=== PATIENT | male | born 1955 ===

== ENCOUNTER 2022-01-23 06:20 | Emergency (ER) | payer OTHER, SELFPAY ==
--- OUTSIDE RECORDS SUMMARY | 2022-01-23 06:24 | XMS REPORT | Continuity of Care Document ---
:1955 Author Organization [facility] t Address [address] [place] [address] Dr. Gayle [address] [place] [address] Care Team Providers Name Role Phone BELIA HANCOCK Attending Clinician Unavailable Belia Hancock MD Attending Clinician Only, Adc Test Attending Clinician Unavailable BELIA HANCOCK Admitting Clinician Unavailable Belia Hancock MD Admitting Clinician Problems This patient has no known problems. Allergies, Adverse Reactions, Alerts Allergy Allergy Status Severity Reaction(s) Onset Inactive Treating Comm ents Source Name Type Date Date Clinician NO KNOWN Drug Active Univers ALLERGIE Class [facility] Social History Social Habit Start Date Stop Date Quantity Comments Source Sex Assigned At [facility] Exposure to Not sure [facility] SARS-CoV-2 (event) [facility] Tobacco use and 2020-01-13 2020-01-13 Never used [facility] exposure 00:00:00 00:00:00 [facility] Smoking Status Start Date Stop Date Source Unknown if ever smoked [facility] Never smoker [facility] Medications Ordered Filled Start Stop Current Ordering Indication Dosage Frequency Signature Comments Components Source Medication Medication Date Date Medication? Clinician (SIG) Name Name lisinopriL 2019-02 Yes 10mg Take 10 mg U nivers 10 mg 2-09 by mouth ity of tablet 16:01: daily. [address] atorvastati 2019-02 Yes 80mg Take 80 mg Univers n 80 mg 2-09 by mouth ity of tablet 16:01: at [place] [address] bedtime. [facility] water for 2019-02 Yes PRN, Univers irrigation -09 Starting ity o f irrigation 13:05: Wed [place] solution 00 12/9/20 at Medic al 0705, Branch Until Discontinu ed, Routine, Intra-op simethicone 2019-02 Yes PRN, Univer s (GAS RELIEF - Starting ity of (SIMETHICON 13:05: Wed [place] E)) 40 00 01/15/20 at Medical mg/0.6 mL 0705, Branch drops Until Discontinu ed, Routine, Intra-op atorvastati 2019-02 Yes 80mg Take 80 mg Univers n 80 mg 2-07 by mouth ity of tablet 19:10: at [place] 40 bedtime. Medical Branch lisinopriL 2019-02 Yes 10mg Take 10 mg U nivers 10 mg 2-07 by mouth ity of tablet 19:10: daily. [address] Vital Signs Vital Name Observation Time Observation Value Comments Source Systolic blood 2020-01-15 15:03:00 124 mm[Hg] [facility] sity pressure [facility] Diastolic blood 2020-01-15 15:03:00 78 mm[Hg] [facility] of pressure [facility] Heart rate 2020-01-15 15:03:00 69 /min [facility] Respiratory rate 2020-01-15 15:03:00 16 /min [facility] Oxygen saturation in 2020-01-15 15:03:00 96 /min [facility] Arterial blood by [facility] Pulse oximetry [place] Body temperature 2020-01-15 14:23:00 36.33 Jessy [facility] Body height 2020-01-15 12:30:00 172.7 cm [facility] Body weight 2020-01-15 12:30:00 68.04 kg [facility] BMI 2020-01-15 12:30:00 22.81 kg/m2 [facility] Procedures Procedure Date / Time Performed Performing Clinician Claudette e EGD (ENDO) 2020-01-15 13:55:[address] [facility] CONSENT/REFUSAL FOR 2020-01-14 18:18:37 Doctor Unassigned, No [facility] DIAGNOSIS AND Name [facility] TREATMENT ASSIGNMENT OF BENEFITS 2020-01-14 18:18:25 Doctor Unassigned, No [facility] US ABDOMEN LIMITED 2019-11-18 21:29:47 Belia Hancock [facility] Encounters Start End Encounter Admission Attending Care Care Encounter Source Date/Time Date/Time Type Type Clinicians Facility Department ID 2020-12-05 Outpatient [facility] [id number] Univers 09:22:32 BELIA Daniel [facility] 2020-01-15 2020-01-15 [facility] [id number] Univers 06:32:00 09:22:00 Encounter e Belia Dumont [id number] ity of [place] [id number] [facility] [id number] [facility] [address] [place] 2020-01-14 2020-01-14 Laboratory Only, Adc Test [facility] [id number] Univers 12:16:35 12:31:35 Only Belia Hancock 350.1.1 3.10 [facility] [place] [id number] [facility] [id number] [facility] [address] [place] 2020-01-14 2020-01-14 Outpatient R [facility] [id number] Univers 12:30:00 12:30:00 BELIA Daniel [facility] 2019-11-18 2019-11-18 [facility] [id number] Univers 15:56:42 23:59:00 Encounter john Belia Dumont [id number] [facility] of [place] [id number] [facility] [id number] [facility] [address] [place] 2019-11-18 2019-11-18 Outpatient R [facility] [id number] Univers 00:00:00 00:00:00 BELIA Daniel [facility] Results Test Description Test Test Results Result Source Time Comments Comments US ABDOMEN right Univer sity of LIMITED 12 upper quadrant [facility] 21:56:22 ultrasound. No Branch cholelithiasis orcholecystitis.US ABDOMEN LIMITED 11/18/2019 4:09 PM HISTORY: Chest pain, unspecified type chest pain when burping COMPARISON: None. FINDINGS: LIVER: Normal in size measuring 13.4 cm in length. And echo-texture. Nofocal hepatic lesion. ?Normal hepatopetal ?flow within the main portalvein. Main portal vein diameter: 0.9 cm. GALLBLADDER: No cholelithiasis, pericholecystic fluid, or gallbladderdistention. No sonographic Menendez's sign. The common bile duct measures 0.3cm. PANCREAS: The visualized portion of the pancreas is unremarkable. RIGHT KIDNEY: The visualized portion of the right kidney is unremarkable. Aorta: The proximal aorta measures 1.8 cm. [facility], Radiant Results Inft User - 11/18/2019 4:57 PM CDTUS ABDOMEN LIMITED 11/18/2019 4:09 PM HISTORY: Chest pain, unspecified type chest pain when burping COMPARISON: None. FINDINGS: LIVER: Normal in size measuring 13.4 cm in length. And echo-texture. Nofocal hepatic lesion. Normal hepatopetal flow within the main portalvein. Main portal vein diameter: 0.9 cm.GALLBLADDER: No cholelithiasis, pericholecystic fluid, or gallbladderdistention. No sonographic Menendez's sign. The common bile duct measures 0.3cm.PANCREAS: The visualized portion of the pancreas is unremarkable.RIGHT KIDNEY: The visualized portion of the right kidney is unremarkable.Aorta: The proximal aorta measures 1.8 cm.IMPRESSIONUnremarkab le right upper quadrant ultrasound. No cholelithiasis orcholecystitis.
[2022-01-23] MEDS ORDERED: ONDANSETRON 4 MG/2 ML VIAL ONE (06:27)
[2022-01-23] MEDS ORDERED: MORPHINE 4 MG/ML SYR ONE ×2 (06:27→08:34)
[2022-01-23] MEDS ORDERED: FAMOTIDINE 20 MG/2 ML VIAL IV ONE (06:31)
[2022-01-23] MEDS ORDERED: NA CHLORIDE 0.9% 2,000 ML ONE (06:31)
[2022-01-23 06:55] LABS: Absolute Lymphocytes (CBC) 4.1 K/uL (0.7-4.9); Hematocrit 43.2 % (39.6-49.0); Lymphocytes % 38.8 % (15.3-44.8); MCV 90.9 fL (80-100); MPV 9.8 fL (7.6-11.3); Protime INR 1.03; RBC Red Blood Cell Count 4.76 M/uL (4.33-5.43)
[2022-01-23] MEDS ORDERED: DIAZEPAM 5 MG TABLET ONE (06:55)
[2022-01-23] MEDS ORDERED: dexAMETHasone 10 MG/ML VIAL ONE (06:56)
[2022-01-23] MEDS ORDERED: KETOROLAC 30 MG/ML INJ ONE (06:56)
[2022-01-23 07:15] LABS: Albumin 3.4 g/dL (3.4-5.0); Bilirubin Direct 0.1 mg/dL (0-0.2); Bilirubin Total 0.5 mg/dL (0.2-1.0); Magnesium 1.9 mg/dL (1.6-2.4); Potassium 3.6 mmol/L (3.5-5.1); Protein, Total 7.1 g/dL (6.4-8.2); Troponin High Sensitivity 9.9 pg/mL (<58.9)
[2022-01-23 07:17] LABS: SARS-CoV-2 Antigen Rapid Res Negative (Negative)
--- NOTE | 2022-01-23 07:21 | RAD REPORT ---
EXAM DESCRIPTION: RAD - Chest Single View - 01/23/2022 6:50 am CLINICAL HISTORY: CHEST PAIN TECHNIQUE: AP portable chest image was obtained 01/23/2022 6:50 am . FINDINGS: Lungs are clear. Heart and vasculature are normal. No measurable pleural effusion and no p neumothorax. No acute bony abnormality seen. No acute aortic findings suspected. IMPRESSION: No acute cardiopulmonary process.
[2022-01-23 07:27] LABS: CKMB Creatine Kinase MB 3.2 ng/mL (1.0-3.6)
[2022-01-23 08:10] LABS: Blood Morphology Comment NOT SEEN (NOT SEEN); White Blood Cell Scan OK (OK)
[2022-01-23 08:11] LABS: Platelet Estimate ADEQ
--- NOTE | 2022-01-23 08:11 | RAD REPORT ---
EXAM DESCRIPTION: CT - Angio Aorta For Dissection - 01/23/2022 7:50 am CLINICAL HISTORY: cp COMPARISON: None. TECHNIQUE: Dynamically enhanced 3 mm thick images of the chest, abdomen, and pelvis were obtained du ring administration of approximately 150mL Isovue 370 IV contrast. Sagittal and coronal reconstructio n images were generated using MIP and reviewed. Exam utilizes a protocol to evaluate entire course of the aorta. All CT scans are performed using dose optimization technique as appropriate and may include automated exposure control or mA/KV adjustment according to patient size. FINDINGS: Aorta is normal in diameter with no dissection or other acute aortic findings. Atheroscler otic wall calcifications are present but minimal and widely scattered. No significant iliac artery fi ndings. Reconstruction images show no significant findings. Pulmonary arteries are not optimally opacified on this aorta protocol study. However, there is no pul monary embolic disease identifiable to the segmental branch level. No cardiomegaly, pericardial thick ening or pericardial effusion. No mass or infiltrate in the lung parenchyma. No pleural thickening, pleural effusion or pneumothorax . No abnormal mediastinal or hilar mass or lymphadenopathy seen. No chest wall mass or abnormal axillar y lymphadenopathy. Celiac, SMA and renal arteries show no suspicious findings. Solid abdominal viscera and bowel show no significant findings. A few minimally prominent small bowel loops are present, not likely clinically significant given the patient symptomatology. No mass or abnormal lymphadenopathy. No free air, yimi e fluid or inflammatory stranding. No urinary bladder abnormality. Gallbladder is absent. No abnorma l biliary tree dilatation. Fat extends minimally into the left inguinal canal. A right small fat only inguinal hernias present. No acute bone finding. IMPRESSION: Negative CT scan of the aorta for acute or significant finding. Cholecystectomy with no biliary tree abnormality. No other significant findings in the chest, abdomen or pelvis.
--- NOTE | 2022-01-23 08:25 | ER ---
Nurse's Notes [facility] Name: Jorge A Mckinney Age: 66 yrs Sex: Male : 1955 Arrival Date: 01/23/2022 Time: 06:21 Bed 4 Private MD: Diagnosis: Unspecified symptoms and signs involving the musculoskeletal system;Strain of muscle and tendon of back wall of thorax;Strain of muscle and tendon of thorax Presentation: 01/23 06:37 Chief complaint: Patient states: "I think I am having a heart attack, I woke up and my vc1 left arm and shoulders hurt so bad.". Coronavirus screen: Vaccine status: Patient reports receiving the 2nd dose of the covid vaccine. Plus 1 booster; Moderna Client denies travel out of the [place] in the last 14 days. At this time, the client does not indicate any symptoms associated with coronavirus-19. Ebola Screen: No symptoms or risks identified at this time. Initial Sepsis Screen: Does the patient meet any 2 criteria? RR > 20 per min. No. Patient's initial sepsis screen is negative. Does the patient have a suspected source of infection? No. Patient's initial sepsis screen is negative. Risk Assessment: Do you want to hurt yourself or someone else? Patient reports no desire to harm self or others. Onset of symptoms was January 23, 2022. 06:37 Method Of Arrival: Ambulatory vc1 06:37 Acuity: YANA 3 vc1 Triage Assessment: 06:41 General: Appears distressed, uncomfortable, Behavior is anxious. Pain: Complains of vc1 pain in left subscapular area and left scapular area Pain radiates to back Pain currently is 7 out of 10 on a pain scale. at worst was 10 out of 10 on a pain scale. Quality of pain is described as stabbing. EENT: No deficits noted. No signs and/or symptoms were reported regarding the EENT system. Neuro: Level of Consciousness is awake, alert, obeys commands, Oriented to person, place, time, situation, Appropriate for age. Cardiovascular: Denies chest pain. Respiratory: Airway is patent Respiratory effort is even, unlabored, Respiratory pattern is symmetrical, tachypnea. GI: No deficits noted. No signs and/or symptoms were reported involving the gastrointestinal system. : No deficits noted. No signs and/or symptoms were reported regarding the genitourinary system. Derm: No deficits noted. No signs and/or symptoms reported regarding the dermatologic system. Musculoskeletal: Reports pain in left arm Pain is 10 out of 10 on a pain scale. Historical: - Allergies: 06:39 No Known Allergies; vc1 - Home Meds: 06:39 atorvastatin 80 mg oral tab 1 tab once daily [Active]; lisinopril 10 mg Oral tab 1 tab vc1 once daily [Active]; - PMHx: 06:39 Hypertensive disorder; Hypercholesterolemia; vc1 - PSHx: 06:39 None; vc1 - Immunization history:: Client reports receiving the 2nd dose of the Covid vaccine. - Social history:: Smoking status: Patient denies any tobacco usage or history of. Screenin:40 Abuse screen: Denies threats or abuse. Nutritional screening: No deficits noted. vc1 Tuberculosis screening: No symptoms or risk factors identified. Fall Risk No fall in past 12 months (0 pts). 08:[address] [facility] ED Fall Risk Assessment (Adult) History of falling in the last 3 months, mb9 including since admission No falls in past 3 months (0 pts) Confusion or Disorientation No (0 pts) Intoxicated or Sedated No (0 pts) Impaired Gait No (0 pts) Mobility Assist Device Used No (0 pt) Altered Elimination No (0 pt) Score/Fall Risk Level 0 - 2 = Low Risk Oriented to surroundings, Maintained a safe environment, Educated pt \\T\\ family on fall prevention, incl call for assistance when getting out of bed. Assessment: 07:00 Reassessment: Received report from EDEN Taylor. mb9 07:26 General: Appears uncomfortable, Behavior is anxious. Pain: Complains of pain in left mb9 arm and back and right subscapular area and left subscapular area and right scapular area and left scapular area Pain does not radiate. Pain currently is 10 out of 10 on a pain scale. Quality of pain is described as shooting, stabbing, throbbing, Pain began suddenly, Is continuous, Alleviated by nothing. Aggravated by increased activity, repositioning, weight bearing, Noted to be moaning. Neuro: Level of Consciousness is awake, alert, obeys commands, Oriented to person, place, time, situation, Appropriate for age. Cardiovascular: Heart tones S1 S2 present Capillary refill < 3 seconds Rhythm is regular. Respiratory: Airway is patent Respiratory effort is even, unlabored, Respiratory pattern is regular, symmetrical, Breath sounds are clear bilaterally. GI: Abdomen is flat, Bowel sounds present X 4 quads. Abd is soft and non tender X 4 quads. : No signs and/or symptoms were reported regarding the genitourinary system. EENT: No signs and/or symptoms were reported regarding the EENT system. Derm: Skin is pink, warm \\T\\ dry. Musculoskeletal: Range of motion: intact in all extremities. 07:40 Reassessment: pt taken to CT via stretcher. mb9 08:25 General: Appears in no apparent distress. comfortable, Behavior is calm, cooperative. mb9 Pain: Complains of pain in back. Neuro: Level of Consciousness is awake, alert, obeys commands, Oriented to person, place, time, situation, Appropriate for age. Cardiovascular: Heart tones S1 S2 present Rhythm is regular. Respiratory: Airway is patent Respiratory effort is even, unlabored. Derm: Skin is pink, warm \\T\\ dry. 08:42 Neuro: Level of Consciousness is awake, alert, obeys commands, Oriented to person, mb9 place, time, situation, Appropriate for age. Cardiovascular: Rhythm is regular. Respiratory: Airway is patent Respiratory effort is even, unlabored, Respiratory pattern is regular, symmetrical. Derm: Skin is pink, warm \\T\\ dry. Vital Signs: 06:37 BP 115 / 83; Pulse 80; Resp 22; Pulse Ox 100% ; Weight 74.84 kg; Height 5 ft. 8 in. vc1 (172.72 cm); Pain 10/10; 07:28 BP 130 / 98; Pulse 68; Resp 18; Pulse Ox 96% on R/A; Pain 10/10; mb9 08:26 BP 114 / 71; Pulse 68; Resp 18; Pulse Ox 98% on R/A; mb9 08:51 BP 103 / 77; Pulse 64; Resp 14; Pulse Ox 97% on R/A; Pain 0/10; mb9 06:37 Body Mass Index 25.09 (74.84 kg, 172.72 cm) vc1 ED Course: 06:21 Patient arrived in ED. ja2 06:24 Daniel Mejia MD is Attending Physician. [facility] 06:28 Ebrottie, Kouassi, RN is Primary Nurse. ke1 06:35 Inserted saline lock: 20 gauge in right antecubital area, using aseptic technique. ke1 ,using aseptic technique. by Mary charge nurse. 06:39 Triage completed. vc1 06:41 Patient has correct armband on for positive identification. Placed in gown. Bed in low vc1 position. Call light in reach. Client placed on continuous cardiac and pulse oximetry monitoring. NIBP monitoring applied. 06:52 XRAY Chest (1 view) In Process Unspecified. EDMS 07:24 Attending Physician role handed off by Daniel Mejia MD sp3 07:24 Alex Nam MD is Attending Physician. sp3 07:52 CT Aorta for Dissection In Process Unspecified. EDMS 08:08 No provider procedures requiring assistance completed. mb9 08:24 Oumar Nolen MD is Referral Physician. sp3 08:28 IV discontinued, intact, bleeding controlled, No redness/swelling at site. Pressure mb9 dressing applied. Administered Medications: 06:35 Drug: morphine 4 mg Route: IVP; Infused Over: 4 mins; Site: right antecubital; ke1 06:35 Drug: Zofran (Ondansetron) 4 mg Route: IVP; Site: right antecubital; ke1 06:36 Drug: NS 0.9% 1000 ml Route: IV; Rate: 1 bolus; Site: right antecubital; ke1 06:36 Drug: NS 0.9% 1000 ml Route: IV; Rate: 125 ml/hr; Site: right antecubital; ke1 06:36 Drug: Pepcid (famotidine) 20 mg Route: IVP; Site: right antecubital; ke1 07:02 Drug: Valium (diazepam) 10 mg Route: PO; ll3 07:03 Drug: Decadron - Dexamethasone 10 mg Route: IVP; Site: right antecubital; ll3 07:03 Drug: Ketorolac 30 mg Route: IVP; Site: right antecubital; ll3 08:42 Drug: morphine 4 mg Route: IVP; Infused Over: 4 mins; Site: right antecubital; mb9 Medication: 06:41 VIS not applicable for this client. vc1 Outcome: 08:24 Discharge ordered by . sp3 08:27 Discharged to home ambulatory. mb9 08:27 Condition: stable 08:27 Discharge instructions given to patient, Instructed on discharge instructions, follow up and referral plans. Demonstrated understanding of instructions, follow-up care, medications, Prescriptions given X 4. 08:53 Patient left the ED. mb9 Signatures: Dispatcher [employer] EDDaniel Aquino MD MD cha Patel, Setul, MD MD sp3 Kayy Moore Lynsea RN RN ll3 Mary Jett RN RN 1 Mark Shepherd RN RN ke1 Sharri Gao RN RN mb9
--- NOTE | 2022-01-23 08:25 | EDPHYS ---
Physician Documentation [facility] Name: Jorge A Mckinney Age: 66 yrs Sex: Male : 1955 Arrival Date: 01/23/2022 Time: 06:21 Bed 4 Private MD: ED Physician Alex Nam HPI: 01/23 06:39 This 66 yrs old Male presents to ER via Ambulatory with complaints of upper dina back pain. 06:39 The patient presents with pain that is acute, and decreased range of motion, and an dina injury. The symptoms are located in the left scapular area, right scapular area, left subscapular area and right subscapular area. Onset: The symptoms/episode began/occurred 1 day(s) ago. Historical: - Allergies: 06:39 No Known Allergies; vc1 - Home Meds: 06:39 atorvastatin 80 mg oral tab 1 tab once daily [Active]; lisinopril 10 mg Oral tab 1 tab vc1 once daily [Active]; - PMHx: 06:39 Hypertensive disorder; Hypercholesterolemia; vc1 - PSHx: 06:39 None; vc1 - Immunization history:: Client reports receiving the 2nd dose of the Covid vaccine. - Social history:: Smoking status: Patient denies any tobacco usage or history of. ROS: 06:50 Constitutional: Negative for fever, chills, and weight loss, Eyes: Negative for injury, dina pain, redness, and discharge, ENT: Negative for injury, pain, and discharge, Neck: Negative for injury, pain, and swelling, Cardiovascular: Negative for chest pain, palpitations, and edema, Respiratory: Negative for shortness of breath, cough, wheezing, and pleuritic chest pain, Back: Negative for injury and pain, : Negative for injury, bleeding, discharge, and swelling, Skin: Negative for injury, rash, and discoloration, Neuro: Negative for headache, weakness, numbness, tingling, and seizure, Psych: Negative for depression, anxiety, suicide ideation, homicidal ideation, and hallucinations, Allergy/Immunology: Negative for hives, rash, and allergies, Endocrine: Negative for neck swelling, polydipsia, polyuria, polyphagia, and marked weight changes, Hematologic/Lymphatic: Negative for swollen nodes, abnormal bleeding, and unusual bruising. 06:50 Respiratory: Negative for cough, hemoptysis, orthopnea, pleurisy, shortness of breath, sputum production, wheezing. 06:50 Back: Positive for decreased range of motion, pain at rest, pain with movement, of the left scapular area, right scapular area, left subscapular area, right subscapular area and thoracic area. Exam: 06:50 Constitutional: This is a well developed, well nourished patient who is awake, alert, dina and in no acute distress. Head/Face: Normocephalic, atraumatic. Eyes: Pupils equal round and reactive to light, extra-ocular motions intact. Lids and lashes normal. Conjunctiva and sclera are non-icteric and not injected. Cornea within normal limits. Periorbital areas with no swelling, redness, or edema. ENT: Nares patent. No nasal discharge, no septal abnormalities noted. Tympanic membranes are normal and external auditory canals are clear. Oropharynx with no redness, swelling, or masses, exudates, or evidence of obstruction, uvula midline. Mucous membranes moist. Neck: Trachea midline, no thyromegaly or masses palpated, and no cervical lymphadenopathy. Supple, full range of motion without nuchal rigidity, or vertebral point tenderness. No Meningismus. Chest/axilla: Normal chest wall appearance and motion. Nontender with no deformity. No lesions are appreciated. Cardiovascular: Regular rate and rhythm with a normal S1 and S2. No gallops, murmurs, or rubs. Normal PMI, no JVD. No pulse deficits. Respiratory: Lungs have equal breath sounds bilaterally, clear to auscultation and percussion. No rales, rhonchi or wheezes noted. No increased work of breathing, no retractions or nasal flaring. Abdomen/GI: Soft, non-tender, with normal bowel sounds. No distension or tympany. No guarding or rebound. No evidence of tenderness throughout. Male : Normal genitalia with no discharge or lesions. Skin: Warm, dry with normal turgor. Normal color with no rashes, no lesions, and no evidence of cellulitis. Neuro: Awake and alert, GCS 15, oriented to person, place, time, and situation. Cranial nerves II-XII grossly intact. Motor strength 5/5 in all extremities. Sensory grossly intact. Cerebellar exam normal. Normal gait. Psych: Awake, alert, with orientation to person, place and time. Behavior, mood, and affect are within normal limits. 06:50 ECG was reviewed by the Attending Physician. 06:50 Back: pain, that is moderate, ROM is painful, with rotation to the right, with rotation to the left, with flexion, with extension, normal spinal alignment noted, CVA tenderness, is absent, vertebral tenderness, is not appreciated, muscle spasm, is appreciated in the left scapular area, right scapular area, left subscapular area and right subscapular area. Vital Signs: 06:37 BP 115 / 83; Pulse 80; Resp 22; Pulse Ox 100% ; Weight 74.84 kg; Height 5 ft. 8 in. vc1 (172.72 cm); Pain 10/10; 07:28 BP 130 / 98; Pulse 68; Resp 18; Pulse Ox 96% on R/A; Pain 10/10; mb9 08:26 BP 114 / 71; Pulse 68; Resp 18; Pulse Ox 98% on R/A; mb9 08:51 BP 103 / 77; Pulse 64; Resp 14; Pulse Ox 97% on R/A; Pain 0/10; mb9 06:37 Body Mass Index 25.09 (74.84 kg, 172.72 cm) vc1 MDM: 06:24 Patient medically screened. dina 06:53 Differential diagnosis: Abdominal Aortic Aneurysm Cholelithiasis Fatigue Ligament dina Injury Osteoarthritis Osteoporosis Perforated Ulcer ruptured disc, sprain, vertebral fracture. Data reviewed: vital signs, nurses notes, lab test result(s), EKG, radiologic studies, CT scan, plain films. Data interpreted: manager monitoring: rate is 80 beats/min, rhythm is regular, Pulse oximetry: on room air is 100 %. Test interpretation: by ED physician or midlevel provider: ECG, plain radiologic studies. 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 08:23 ED course: Discussed with patient his lab results and CT scan which demonstrate no sp3 significant abnormality we will discharge patient home at this time.. 01/23 06:27 Order name: Basic Metabolic Panel; Complete Time: 08:23 dina 01/23 06:27 Order name: CBC with Diff; Complete Time: 08:23 dina 01/23 06:27 Order name: LFT's; Complete Time: 08:23 dina 01/23 06:27 Order name: Magnesium; Complete Time: 08:23 dina 01/23 06:27 Order name: NT PRO-BNP; Complete Time: 08:23 dina 01/23 06:27 Order name: PT-INR; Complete Time: 08:23 dnia 01/23 06:27 Order name: Troponin HS; Complete Time: 08:23 dina 01/23 06:27 Order name: XRAY Chest (1 view); Complete Time: 08:23 01/23 06:27 Order name: Lipase; Complete Time: 08:23 dina 01/23 06:27 Order name: SARS RAPID; Complete Time: 08:23 dina 01/23 06:27 Order name: CT Aorta for Dissection; Complete Time: 08:23 dina 01/23 07:08 Order name: CK; Complete Time: 08:23 dina 01/23 07:08 Order name: Ckmb; Complete Time: 08:23 [facility] 01/23 08:11 Order name: CBC Smear Scan; Complete Time: 08:23 EDMD 01/23 06:27 Order name: EKG; Complete Time: 06:28 [facility] 01/23 06:27 Order name: Cardiac monitoring; Complete Time: 06:31 dina 01/23 06:27 Order name: EKG - Nurse/Tech; Complete Time: 06:31 [facility] 01/23 06:27 Order name: IV Saline Lock; Complete Time: 06:31 [facility] 01/23 06:27 Order name: Labs collected and sent; Complete Time: 06:43 [facility] 01/23 06:27 Order name: O2 Per Protocol; Complete Time: 06:31 dina 01/23 06:27 Order name: O2 Sat Monitoring; Complete Time: 06:31 [facility] EC:50 Rate is 84 beats/min. Rhythm is regular. QRS Palmer is Normal. IA interval is normal. QRS dina interval is normal. QT interval is normal. No Q waves. T waves are Normal. No ST changes noted. Clinical impression: NSR w/ Non-specific ST/T Changes and No evidence of ischemia. Interpreted by me. Reviewed by me. Administered Medications: 06:35 Drug: morphine 4 mg Route: IVP; Infused Over: 4 mins; Site: right antecubital; ke1 06:35 Drug: Zofran (Ondansetron) 4 mg Route: IVP; Site: right antecubital; ke1 06:36 Drug: NS 0.9% 1000 ml Route: IV; Rate: 1 bolus; Site: right antecubital; ke1 06:36 Drug: NS 0.9% 1000 ml Route: IV; Rate: 125 ml/hr; Site: right antecubital; ke1 06:36 Drug: Pepcid (famotidine) 20 mg Route: IVP; Site: right antecubital; ke1 07:02 Drug: Valium (diazepam) 10 mg Route: PO; ll3 07:03 Drug: Decadron - Dexamethasone 10 mg Route: IVP; Site: right antecubital; ll3 07:03 Drug: Ketorolac 30 mg Route: IVP; Site: right antecubital; 3 08:42 Drug: morphine 4 mg Route: IVP; Infused Over: 4 mins; Site: right antecubital; mb9 Disposition Summary: 01/23/22 08:24 Discharge Ordered Location: Home sp3 Problem: new sp3 Symptoms: have improved sp3 Condition: Stable sp3 Diagnosis - Unspecified symptoms and signs involving the musculoskeletal system sp3 - Strain of muscle and tendon of back wall of thorax sp3 - Strain of muscle and tendon of thorax sp3 Followup: dina - With: Private Physician - When: 2 - 3 days - Reason: Recheck today's complaints, Continuance of care, Re-evaluation by your physician Followup: dina - With: - When: 2 - 3 days - Reason: Recheck today's complaints, Re-evaluation by your physician Discharge Instructions: - Discharge Summary Sheet dina - Muscle Cramps and Spasms dina - Muscle Strain dina - Muscle Pain, Adult dina - Muscle Cramps and Spasms, [id number] dina - Muscle Strain, [id number] dina Forms: - Medication Reconciliation Form sp3 - Thank You Letter sp3 - Antibiotic Education sp3 - Prescription Opioid Use sp3 Prescriptions: - Valium 5 mg Oral Tablet - take 1 tablet by ORAL route every 8 hours As needed; 20 tablet; Refills: 0, dina Product Selection Permitted - Diclofenac Sodium 75 mg Oral tablet,delayed release (DR/EC) - take 1 tablet by ORAL route 2 times per day; 20 tablet; Refills: 0, Product dina Selection Permitted - Medrol (Albin) 4 mg Oral Tablets, Dose Pack - take 1 tablet by ORAL route as directed - follow package instructions; 1 dina packet; Refills: 0, Product Selection Permitted - Tylenol-Codeine #3 300 mg-30 mg Oral - take 2 tablet by ORAL route every 6 hours; 20 tablet; Refills: 0, Product dina Selection Permitted Signatures: Dispatcher [employer] Daniel Davis MD MD cha Patel, Setul, MD MD sp3 Jorge Gómez, RN RN ll3 Mary Jett RN RN vc1 Mark Shepherd RN RN ke1 Sharri Gao RN RN mb9
[2022-01-23 09:22] VITALS: BP 103/77; O2SAT 97
--- NOTE | 2022-01-25 15:20 | EKG ---
Test Date: 2022-01-23 Test Time: 06:29:38 Termite Treater Helper: DARLEEN MEASUREMENT RESULTS: Intervals: Rate: 84 TX: 152 QRSD: 84 QT: 376 QTc: 444 [place]: P: 64 TX: 152 QRS: -28 T: 30 INTERPRETIVE STATEMENTS: Normal sinus rhythm Possible Left atrial enlargement Borderline ECG No previous ECG available for comparison Electronically Signed On 01-25-22 15:16:43 CANDY ATTENDANT by Rich Faulkner
== END 2022-01-23 08:53 | disposition home or self-care (01) ==
LOC: ER 06:20
DX: S29.012A Strain of muscle and tendon of back wall of thorax, initial encounter (principal); R29.91 Unspecified symptoms and signs involving the musculoskeletal system; Z20.822 Contact with and (suspected) exposure to COVID-19; I10 Essential (primary) hypertension
CPT/HCPCS: 85025; 80048; 36415; 83735; 82550; 85610; 80076; 84484; 82553; 83690; 83880; 71275; 74175; 71045; 96375; 96374; 99284; 87811; Q9967; J1100; J7030; J2405; 93005